=== PATIENT | female | born 1995 | race Caucasian/White ===

== ENCOUNTER 2017-06-13 10:15 | Day surgery (SDC) | payer OTHER ==
[~2017-06-13 10:15] MED LIST: Buffered Lidocaine 0.9% SYRIN* 5 ML/SYR SYRINGE INTRADERM ONE; Buffered Lidocaine 0.9% SYRIN* 5 ML/SYR SYRINGE ONE; Famotidine TAB* 20 MG ONE; Famotidine TAB* 20 MG PO ONE; Metoclopramide TAB* 10 MG ONE; Metoclopramide TAB* 10 MG PO ONE; Scopolamine 1.5 mg* PATCH ONE; Scopolamine 1.5 mg* PATCH TRANSDERM ONE
[2017-06-13 10:36] LABS: Manual Entry Verification ABI0007; UR Preg Internal Control QC Line Present
[2017-06-13] MEDS ORDERED: fentaNYL* 50 MCG/ML 2 ML VIAL (100 MCG VIAL) ONE (11:57)
[2017-06-13] MEDS ORDERED: Lidocaine 2% PF * 5 ML VIAL ONE (11:58)
[2017-06-13] MEDS ORDERED: Propofol* 10 MG/ML 20 ML BTL IV PUSH ONE (11:58)
[2017-06-13] MEDS ORDERED: Ondansetron INJ* 2 MG/ML VIAL ONE (11:58)
[2017-06-13] MEDS ORDERED: Dexamethasone IV* 4 MG/ML 1 ML (4 MG) ONE (11:58)
[2017-06-13] MEDS ORDERED: Succinylcholine* 20 MG/ML 10 ML VIAL ONE (11:58)
[2017-06-13] MEDS ORDERED: Acetaminophen IV 1GM/100ML * 10 MG/ML VIAL IVPB ONE (12:16)
[2017-06-13] MEDS ORDERED: DiMENhydriNATE IV* 50 MG/ML VIAL IV PUSH PRN (12:16)
[2017-06-13] MEDS ORDERED: fentaNYL* 50 MCG/ML 2 ML VIAL (100 MCG VIAL) IV PRN (12:16)
[2017-06-13] MEDS ORDERED: Acetaminophen IV 1GM/100ML * 100 ML ONE (12:34)
[2017-06-13] MEDS ORDERED: DiMENhydriNATE IV* 50 MG/ML VIAL ONE (12:55)
[2017-06-13 13:43] VITALS: BP 121/76
--- NOTE | 2017-06-14 10:26 | OP ---
DATE OF OPERATION: 06/13/17 - [facility] DATE OF : [birth year] SURGEON: Dayne Laguna MD ANESTHESIOLOGIST: Peter Herr MD ANESTHESIA: General PRE-OP DIAGNOSIS: Chronic tonsillitis. POST-OP DIAGNOSIS: Chronic tonsillitis. OPERATIVE PROCEDURE: Tonsillectomy. INDICATIONS: This is a 22-year-old with frequent tonsillitis, recurring tonsilloliths, elected for surgical therapy. DESCRIPTION OF PROCEDURE: The patient was taken to the operating room, general anesthetic was given. The patient was intubated. Tongue, mandible, and soft palate were retracted. Coblator was used to remove the tonsils. Once hemostasis was obtained, the patient was awakened and sent to Recovery in stable condition. Instrument and sponge counts were correct. Blood loss minimal. [id number] #: [id number]
[2017-06-16] MEDS ORDERED: Scopolomine PATCH Remove* 1 NOTE MISC PATCH OFF ONE (06:00)
== END 2017-06-13 13:50 | disposition home or self-care (01) ==
LOC: OR 10:15
PROVIDERS: ATTEND Otolaryngology
DX: J35.01 Chronic tonsillitis (principal)
CPT/HCPCS: 81025; 88304; A9270-GY; J0330; J1100; J1240; J2405; J2704; J3010